=== PATIENT | female | born 1930 | race Caucasian/White ===

== ENCOUNTER 2016-12-27 10:44 | Emergency (ER) | payer MEDICARE ==
[~2016-12-27] VITALS: Ht 165.1 cm; Wt 68.1 kg
[~2016-12-27 10:44] MED LIST: ASPI81 PO; DIPH25TA PO; [UNRECOGNIZED DRUG - CODE] PO
[2016-12-27] MEDS ORDERED: HYDROCODONE/ACETAMINOPHEN 5-325 MG TABLET PO ONE (12:00)
[2016-12-27] MEDS ORDERED: PERTUSS(ACELL),DIPH,TET VAC/PF 0.5 ML VIAL IM ONE (12:30)
[2016-12-27] MEDS ORDERED: IBUPROFEN 800 MG TABLET PO ONE (13:30)
[2016-12-27 13:53] VITALS: BP 132/72
== END 2016-12-27 14:56 | disposition home or self-care (01) ==
LOC: EMS 10:47
DX: S42.202A Unspecified fracture of upper end of left humerus, initial encounter for closed fracture (principal); S50.02XA Contusion of left elbow, initial encounter; E78.00 Pure hypercholesterolemia, unspecified; W18.39XA Other fall on same level, initial encounter; Y93.89 Activity, other specified; Y92.89 Other specified places as the place of occurrence of the external cause; Y99.8 Other external cause status
CPT/HCPCS: 90471; 90715; 99284